=== PATIENT | male | born 1985 | race Caucasian/White ===

== ENCOUNTER 2016-11-09 22:59 | Emergency (ER) | payer SELFPAY ==
[~2016-11-09] VITALS: Ht 190.5 cm; Wt 81.6 kg
--- NOTE | 2016-11-09 23:05 | NUR ---
CALLED PT NAME X3. NO REPONSE IN WR
[2016-11-09 23:14] VITALS: BP 164/81
--- NOTE | 2016-11-09 23:52 | NUR ---
CALLED PT NAME X3 TO BRING TO ER BED. NOT IN WAITING ROOM AT THIS TIME.
--- NOTE | 2016-11-09 23:59 | NUR ---
CALLED PT NAME X3. NOT IN WAITING ROOM. PER ADMITTING PT LEFT.
== END 2016-11-10 00:02 | disposition left against medical advice (07) ==
LOC: ER 23:04
DX: Z53.21 Procedure and treatment not carried out due to patient leaving prior to being seen by health care provider (principal)
CPT/HCPCS: A4606; Z7610